=== PATIENT | female | born 1945 | race African-American/Black ===

== ENCOUNTER 2018-09-28 09:09 | Outpatient (CLI) | payer MEDICARE, MEDICAID ==
--- NOTE | 2018-09-28 13:13 | Vascular Lab Report ---
FINAL REPORT EXAM: US KIDNEYS HISTORY: HYPERTENSION TECHNIQUE: Grayscale and color and spectral Doppler ultrasound imaging of the kidneys and abdominal aorta was performed. PRIORS: None. FINDINGS: Abdominal aorta: Peak systolic velocity of the proximal abdominal aorta is 95 centimeters/second. Pea k systolic velocity of the mid abdominal aorta is 60 centimeters/second. The distal abdominal aorta w as not visualized. Normal waveforms were seen. No evidence of abdominal aortic aneurysm. Celiac axis: Peak systolic velocity of the celiac axis is 118 centimeters/second with normal waveform s. Superior mesenteric artery: Peak systolic velocity of the proximal superior mesenteric artery is 241 centimeters/second. Normal arterial waveforms were seen. Renal arteries: Right renal artery: Peak systolic velocity of the proximal right renal artery is 133 centimeters/seco nd. Peak systolic velocity of the mid right renal artery is 97.4 centimeters/second. Peak systolic ve locity of the distal right renal artery is 135 centimeters/second. Normal waveforms were seen. The ri ght renal to aortic ratio is 1.43. Intraparenchymal acceleration time was normal. Left Renal artery: Peak systolic velocity of the proximal left renal artery is 88 centimeters/second. Peak systolic velocity of the mid left renal artery is 59 centimeters/second. Peak systolic velocity of the distal left renal artery is 111 centimeters/second. The left renal to aortic ratio is 1.17. I ntraparenchymal acceleration time was normal. Normal waveforms were seen. Grayscale kidneys: The kidneys are normal in echogenicity without cyst, mass or calcification. No hyd ronephrosis. The right kidney measures 9.3 centimeters in length. The left kidney measures 10.3 centi meters in length. IMPRESSION: 1. No evidence of renal artery stenosis. 2. Normal appearance of the kidneys. 3. 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
== END 2018-09-28 09:10 | disposition home or self-care (01) ==
LOC: VAS 09:09
PROVIDERS: ATTEND Internal Medicine Nephrology
DX: R94.4 Abnormal results of kidney function studies (principal); I10 Essential (primary) hypertension
CPT/HCPCS: 93975